=== PATIENT | female | born 1960 | race Caucasian/White ===

== ENCOUNTER 2020-10-21 07:54 | Day surgery (SDC) | payer OTHER ==
[~2020-10-21] VITALS: Ht 170.2 cm; Wt 164.7 kg
[~2020-10-21 07:54] MED LIST: ALAVERT10 M1 PO; ASPIR-LOW81 MG PO; ATENOLOL100 MG PO; BENTYL 20MG TAB20 MG PO; FLONASE SENSIM9.9 ML NS; FORTAMET500 MG PO; GLUCOPHAGE1000 MG PO; GLUCOSAMINE PO; HCTZ 25MG25 MG PO; LIPITOR40 MG PO; LISINOPRIL20 MG PO; LOVAZA1 GM PO; MICARDIS 40MG40 MG PO; ONE DAILY1 TA2 PO; PRILOSEC 20MG20 MG PO; SYNTHROID0.088 MG/T PO; TRICOR145 MG PO; VITAMIN E-400200 IU PO
[2020-10-21 08:53] LABS: HEMATOCRIT 48.8 % (37.0-47.0); HEMOGLOBIN 15.9 g/dl (12.5-16.0); MEAN CELL VOLUME 90 fl (80.0-100.0); MEAN CORPUSCULAR HEMOGLOBIN 29 pg (27.0-31.0); MEAN CORPUSCULAR HGB CONC 33 g/dl (33.0-37.0); MEAN PLATELET VOLUME 11.1 fl (7.4-10.4); PLATELET COUNT 251 K/mm3 (130-400); RED BLOOD COUNT 5.43 M/mm3 (4.10-5.30); REDCELL DISTRIBUTION WIDTH-CV 13.4 % (11.5-14.5)
[2020-10-21 09:03] VITALS: BP 164/111; PULSE 113; TEMP 98.9
[2020-10-21] MEDS ORDERED: NORVASC 5MG5 MG/TAB PO (09:06)
[2020-10-21] MEDS ORDERED: DIFLUCAN150 MG PO (09:07)
[2020-10-21] MEDS ORDERED: LIPITOR 40MG TA40 MG PO (09:08)
[2020-10-21] MEDS ORDERED: COREG 25MG25 MG/TAB PO (09:09)
[2020-10-21] MEDS ORDERED: CELEBREX 200MG200 MG PO (09:09)
[2020-10-21 09:10] LABS: CALCIUM 9.4 mg/dL (8.4-10.2); CREATININE, serum 0.65 (0.52-1.25); MAGNESIUM 1.6 mg/dL (1.6-2.3); POTASSIUM 3.9 mmol/L (3.4-5.0)
[2020-10-21] MEDS ORDERED: B-121000 MCG PO (09:10)
[2020-10-21] MEDS ORDERED: BENTYL 20MG20 MG/TAB PO (09:12)
[2020-10-21] MEDS ORDERED: ELIQUIS 5MG PO (09:13)
[2020-10-21] MEDS ORDERED: JARDIANCE10 PO (09:14)
[2020-10-21] MEDS ORDERED: TRICOR145 MG PO (09:15)
[2020-10-21] MEDS ORDERED: INVIGOFLEX D1500 MG PO (09:22)
[2020-10-21] MEDS ORDERED: OMEGA-3 FISH1000 MG PO (09:25)
[2020-10-21] MEDS ORDERED: HCTZ 25MG TAB25 MG PO (09:26)
[2020-10-21] MEDS ORDERED: PRINIVIL20 MG PO ×2 (09:29)
[2020-10-21] MEDS ORDERED: CENTRUM SILVER1 CTB PO (09:33)
[2020-10-21] MEDS ORDERED: DITROPAN XL15 MG PO (09:34)
[2020-10-21] MEDS ORDERED: VITAMIN D31000 I1 PO (09:34)
[2020-10-21] MEDS ORDERED: NATURAL E400 IU PO (09:35)
[2020-10-21 09:37] LABS: THYROID STIMULATING HORMONE 0.401 uIU/mL (0.350-4.940)
[2020-10-21 10:10] VITALS: BP 136/85; PULSE 77
[2020-10-21 10:15] VITALS: BP 130/93; PULSE 87
[2020-10-21] MEDS ORDERED: MULTAQ400 MG PO (10:21)
[2020-10-21 10:30] VITALS: BP 135/81; PULSE 76
[2020-10-21 10:45] VITALS: BP 133/80; PULSE 76
--- NOTE | 2020-10-21 11:35 | NUR ---
Discharge instructions given to pt.pt verbalizes understanding.INT removed,catheter tip intact.Pt escorted out via wheelchair by this nurse.
== END 2020-10-21 13:09 ==
LOC: COL.CAR 07:54
PROVIDERS: Internal Medicine Cardiovascular Disease
DX: I48.91 Unspecified atrial fibrillation (principal); I10 Essential (primary) hypertension; E78.2 Mixed hyperlipidemia; R06.02 Shortness of breath; G47.33 Obstructive sleep apnea (adult) (pediatric); K21.9 Gastro-esophageal reflux disease without esophagitis; F41.9 Anxiety disorder, unspecified; Z79.899 Other long term (current) drug therapy; Z79.84 Long term (current) use of oral hypoglycemic drugs; Z87.891 Personal history of nicotine dependence; Z79.890 Hormone replacement therapy; E78.5 Hyperlipidemia, unspecified; Z99.89 Dependence on other enabling machines and devices; M19.90 Unspecified osteoarthritis, unspecified site; K58.9 Irritable bowel syndrome, unspecified
CPT/HCPCS: J2704; J7030

== ENCOUNTER 2020-12-24 08:10 | Day surgery (SDC) | payer OTHER ==
[2020-12-24] VITALS (10 sets, daily range): BP systolic 101–144; BP diastolic 71–92; PULSE 107–124; TEMP 98.8
[~2020-12-24] VITALS: Ht 170.2 cm; Wt 162.8 kg
[~2020-12-24 08:10] MED LIST changes: +B-121000 MCG PO; +BENTYL 20MG20 MG/TAB PO; +CELEBREX 200MG200 MG PO; +CENTRUM SILVER1 CTB PO; +COREG 25MG25 MG/TAB PO; +DIFLUCAN150 MG PO; +DITROPAN XL15 MG PO; +ELIQUIS 5MG PO; +HCTZ 25MG TAB25 MG PO; +INVIGOFLEX D1500 MG PO; +JARDIANCE10 PO; +LIPITOR 40MG TA40 MG PO; +MULTAQ400 MG PO; +NATURAL E400 IU PO; +NORVASC 5MG5 MG/TAB PO; +OMEGA-3 FISH1000 MG PO; +PRINIVIL20 MG PO; +VITAMIN D31000 I1 PO
[2020-12-24 09:36] LABS: HEMATOCRIT 49.7 % (37.0-47.0); HEMOGLOBIN 16.1 g/dl (12.5-16.0); MEAN CELL VOLUME 91 fl (80.0-100.0); MEAN CORPUSCULAR HEMOGLOBIN 29 pg (27.0-31.0); MEAN CORPUSCULAR HGB CONC 32 g/dl (33.0-37.0); MEAN PLATELET VOLUME 10.9 fl (7.4-10.4); PLATELET COUNT 267 K/mm3 (130-400); RED BLOOD COUNT 5.48 M/mm3 (4.10-5.30); REDCELL DISTRIBUTION WIDTH-CV 13.2 % (11.5-14.5)
[2020-12-24 09:53] LABS: CALCIUM 9.8 mg/dL (8.4-10.2); CREATININE, serum 0.8 mg/dL (0.57-1.11)
[2020-12-24 10:00] LABS: INR 1.1 (0.8-3.0); PROTHROMBIN TIME 12.2 SECONDS (9.7-12.8)
[2020-12-24 10:03] LABS: PARTIAL THROMBOPLASTIN TIME 28.3 SECONDS (26.0-37.0)
--- NOTE | 2020-12-24 10:04 | NUR ---
SEE EMAR FOR MEDICATION ADMINISTRATION TIMES AND DOSAGES AND INTRA/POST SEDATION ASSESSMENT.
[2020-12-24] MEDS ORDERED: MULTAQ400 MG PO (10:51)
--- NOTE | 2020-12-24 11:17 | NUR ---
Pt is back to [facility] from woods laborer s/p negative heart cath. report received from Sandie ARMANDO. Pt is alert and oriented, pwd with reg and unlabored respirations. TR band to rt wrist, cms intact distal. at bs. call light in reach. lunch ordered. telemetry employed, afib on monitor.
[2020-12-24] MEDS ORDERED: CEPHALEXIN500 M1 PO (11:25)
--- NOTE | 2020-12-24 14:45 | NUR ---
Pt ready for discharge at this time. Pt did well during her recovery, she was able to eat lunch with no problem, she has been up and to bathroom with steady gait. TR band was deflated with no problem, and site dressed with bandaid, folded 2x2 and coban. CMS remains intact distal. Loop recorder site dressing remains clean dry and intact. IV dc'd with cath intact, dressing was applied. I reviewed dc/fu and rx instructions with pt and . They denied any questions at time of departure. Unfortunately I allowed pt to take her own Metformin 500 mg after she returned from cath laboratory technician. Pt is now aware that she should hold Metformin for [address] Velez was notified of this and he advised that pt push fluids over next few days to flush out kidneys. Pt was given this instruction. Pt is escorted to exit via wheelchair.
== END 2020-12-24 14:45 | disposition home or self-care (01) ==
LOC: COL.CAR 08:10
PROVIDERS: Internal Medicine Cardiovascular Disease
DX: I48.0 Paroxysmal atrial fibrillation (principal); R94.39 Abnormal result of other cardiovascular function study; E11.9 Type 2 diabetes mellitus without complications; I10 Essential (primary) hypertension; K58.9 Irritable bowel syndrome, unspecified; E66.9 Obesity, unspecified; E78.5 Hyperlipidemia, unspecified; G47.33 Obstructive sleep apnea (adult) (pediatric); Z99.89 Dependence on other enabling machines and devices
CPT/HCPCS: C1764; C1769; J1644; J2250; J3010

== ENCOUNTER 2021-01-12 08:31 | Inpatient (IN) | payer OTHER ==
[~2021-01-12 08:31] MED LIST changes: +CEPHALEXIN500 M1 PO
[2021-01-24 09:14] VITALS: BP 153/87; PULSE 96; TEMP 98.1
[2021-01-24] MEDS ORDERED: DIFLUCAN150 MG PO (10:01)
[2021-01-24] MEDS ORDERED: MOVE FREE JOIN1 EACH PO (10:06)
[2021-01-24] MEDS ORDERED: CLARITIN 1010 MG/TAB PO (10:06)
[2021-01-24] MEDS ORDERED: NATURAL E400 IU PO (10:07)
[2021-01-24 10:34] LABS: BASO # 0.1 K/mm3 (0.0-0.2); EOS # 0.2 K/mm3 (0.0-0.7); EOS % 2.5 % (0-4.0); GRAN # 4.4 K/mm3 (1.4-6.5); GRAN % 65.1 % (42.2-75.2); HEMATOCRIT 49.6 % (37.0-47.0); LYMPH # 1.4 K/mm3 (1.2-3.4); MEAN CELL VOLUME 90 fl (80.0-100.0); MEAN CORPUSCULAR HEMOGLOBIN 29 pg (27.0-31.0); MEAN CORPUSCULAR HGB CONC 32 g/dl (33.0-37.0); MEAN PLATELET VOLUME 10.9 fl (7.4-10.4); MONO # 0.7 K/mm3 (0.1-0.6); MONO % 9.8 % (1.7-9.3); PLATELET COUNT 265 K/mm3 (130-400); RED BLOOD COUNT 5.49 M/mm3 (4.10-5.30); REDCELL DISTRIBUTION WIDTH-CV 13.1 % (11.5-14.5)
[2021-01-24 10:41] LABS: INR 1.4 (0.8-3.0); PROTHROMBIN TIME 15.1 SECONDS (9.7-12.8)
[2021-01-24 12:23] VITALS: BP 141/96; PULSE 97; TEMP 98.3
[2021-01-24 13:34] VITALS: BP 147/94; PULSE 110; TEMP 97.6
[2021-01-24] MEDS ORDERED: PRINIVIL20 MG PO (13:51)
--- NOTE | 2021-01-24 14:25 | NUR ---
bottling room worker met with patient to discuss discharge plan. Patient states that she lives at home with her Darryl ([phone]) in [place]. Patient reports that she is fully independent with her activities of daily living and only uses a cane prn due to arthritis. Patient does not utilize oxygen but does use a CPAP machine at night which is managed through [facility]. PCP is Dr.John Dominguez at [facility] and she utilizes [facility] for her medications. Patient reports that she does not have a DP- established at this time and is not interested in creating one. Patient is with 4 adult children. Education provided to the patient that the decision making would fall to her . Patient reports that she is planning on returning home with her upon dc with no concerns. Discharge plan: Home
[2021-01-24 16:40] VITALS: BP 148/86; PULSE 91; TEMP 98
--- NOTE | 2021-01-24 18:00 | NUR ---
Patient admitted to room 352 from home for Sotalol initiation. Upon initial assessment, normal S1 and S2 sounds present, radial and pedal pulses +2 bilaterally, heart rate irregular. Patient verbalized a concern about tele stickers giving her skin irritation, skin prep used before stickers attached. Tele on. Scaling on feet noted. Bowel sounds present in all four quadrants. Lungs sounds clear. IV started in left foreram. Patient voiced concern about taking medication provided by hospital. Pharmacist talked with patient. Patient agreeable to medication after discussion with pharmacist. Patient denies any pain, discomfort, SOA, or further needs at this time. VSS. Patient A&O. Call light in reach.
[2021-01-24 18:19] VITALS: BP 140/81; PULSE 104; TEMP 98
[2021-01-24 20:03] VITALS: BP 137/88; PULSE 104; TEMP 98.2
[2021-01-25 00:02] VITALS: BP 133/81; PULSE 100; TEMP 97.8
[2021-01-25 04:35] VITALS: BP 126/82; PULSE 83; TEMP 98.3
--- NOTE | 2021-01-25 06:01 | NUR ---
Rested quietly throughout night club manager, patient upset with med substitutions per pharmacy, tolerating well, telemetry in use for sotalol initiation, VSs stable. Updated on plan of care.
[2021-01-25 07:09] LABS: BASO # 0.1 K/mm3 (0.0-0.2); BASO % 0.8 % (0.0-2.0); EOS # 0.2 K/mm3 (0.0-0.7); EOS % 2.9 % (0-4.0); GRAN # 3.9 K/mm3 (1.4-6.5); GRAN % 53.9 % (42.2-75.2); HEMATOCRIT 48.8 % (37.0-47.0); HEMOGLOBIN 15.9 g/dl (12.5-16.0); LYMPH # 2.2 K/mm3 (1.2-3.4); LYMPH % 30.3 % (20.0-51.0); MEAN CELL VOLUME 90 fl (80.0-100.0); MEAN CORPUSCULAR HEMOGLOBIN 29 pg (27.0-31.0); MEAN CORPUSCULAR HGB CONC 33 g/dl (33.0-37.0); MEAN PLATELET VOLUME 11.7 fl (7.4-10.4); MONO # 0.8 K/mm3 (0.1-0.6); MONO % 11.8 % (1.7-9.3); PLATELET COUNT 253 K/mm3 (130-400); RED BLOOD COUNT 5.42 M/mm3 (4.10-5.30); REDCELL DISTRIBUTION WIDTH-CV 13.2 % (11.5-14.5)
[2021-01-25 07:23] LABS: CREATININE, serum 0.82 mg/dL (0.57-1.11); MAGNESIUM 1.8 mg/dL (1.6-2.6); POTASSIUM 3.8 mmol/L (3.5-4.5)
[2021-01-25 07:32] LABS: INR 1.4 (0.8-3.0); PROTHROMBIN TIME 15.4 SECONDS (9.7-12.8)
--- NOTE | 2021-01-25 07:35 | NUR ---
PT AWAKE IN THE ROOM, NO C/O OF PAIN AT THIS TIME
[2021-01-25 07:40] VITALS: BP 143/88; PULSE 93; TEMP 97.5
--- NOTE | 2021-01-25 08:00 | NUR ---
PT AOX4, UPSET HER MEDS WEREN'T GIVEN AT 0600, PT UPSET SHE COULDN'T HAVE A COUPLE OF HER HOME MEDS, ADDRESSED WITH DR. GRIMES AND HE SAID "SHE CAN TAKE HER OWN". ASSESSMENT PERFORMED, PT ORDERED BREAKFAST WHILE IN THE ROOM. PT WANTING TO DISCHARGE TODAY, EDUCATED HER SHE HAS TO BE ON SOTALOL FOR A CERTAIN NUMBER OF DOSES, RELAYED CONCERN TO . FRESH ICE WATER BROUGHT IN, NO OTHER NEEDS
[2021-01-25 11:46] VITALS: BP 135/94; PULSE 92; TEMP 97.9
[2021-01-25 15:55] VITALS: BP 113/67; PULSE 107; TEMP 98.8
--- NOTE | 2021-01-25 17:28 | NUR ---
PT PLEASANT, AOX4, PT EAGER FOR DC, OK WITH [facility] TOMORROW, PARTICULAR ABOUT MEDS, UNEVENTFUL SHIFT, HR TO 140'S WITH AMBULATION
[2021-01-25 21:02] VITALS: BP 130/86; PULSE 93; TEMP 97.6
[2021-01-26] VITALS (7 sets, daily range): BP systolic 107–135; BP diastolic 45–98; PULSE 64–102; TEMP 97.5–97.8
--- NOTE | 2021-01-26 04:40 | NUR ---
Spoke with daughter - contact info for LP orders is [phone], orders were sent from to radiology with verified arrival, urinating w/o difficulty, ambulating with walker to bathroom, generalized edema noted, neuro check wnl, pain well managed with prn pain medication as ordered, will continue to monitor.
--- NOTE | 2021-01-26 04:44 | NUR ---
Resting quietly, telemetry in use, Afib continues at this time, updated on cardioversion today- verbalized understanding.
[2021-01-26 06:56] LABS: BASO # 0.1 K/mm3 (0.0-0.2); BASO % 0.7 % (0.0-2.0); EOS # 0.2 K/mm3 (0.0-0.7); EOS % 2.6 % (0-4.0); GRAN # 4.1 K/mm3 (1.4-6.5); GRAN % 55.8 % (42.2-75.2); HEMATOCRIT 50.7 % (37.0-47.0); HEMOGLOBIN 16.7 g/dl (12.5-16.0); LYMPH # 2.1 K/mm3 (1.2-3.4); LYMPH % 28.5 % (20.0-51.0); MEAN CELL VOLUME 92 fl (80.0-100.0); MEAN CORPUSCULAR HEMOGLOBIN 30 pg (27.0-31.0); MEAN CORPUSCULAR HGB CONC 33 g/dl (33.0-37.0); MEAN PLATELET VOLUME 11.7 fl (7.4-10.4); MONO # 0.9 K/mm3 (0.1-0.6); MONO % 12.1 % (1.7-9.3); PLATELET COUNT 273 K/mm3 (130-400); RED BLOOD COUNT 5.53 M/mm3 (4.10-5.30); REDCELL DISTRIBUTION WIDTH-CV 12.9 % (11.5-14.5)
[2021-01-26 07:01] LABS: INR 1.3 (0.8-3.0)
[2021-01-26 07:22] LABS: CALCIUM 10.1 mg/dL (8.4-10.2); CREATININE, serum 0.79 mg/dL (0.57-1.11); MAGNESIUM 1.9 mg/dL (1.6-2.6)
--- NOTE | 2021-01-26 07:30 | NUR ---
PT AOX4, DENIES PAIN IN R KNEE AT THIS TIME, PT TEARFUL ON ENTRY OF ROOM REPORTING POOR SLEEP AND FREQUENT INTERUPTIONS, PT STATES "I JUST WANT TO GET THIS OVER WITH AND GO HOME". CONSENT OBTAINED FOR [facility], SOME MEDS GIVEN PER PT REQUEST, ASSESSMENT PERFORMED, CALL LIGHT WITHIN REACH, NO OTHER NEEDS
[2021-01-26] MEDS ORDERED: BETAPACE 120MG120 MG PO (09:20)
--- NOTE | 2021-01-26 09:25 | NUR ---
PT ARRIVED FROM [facility], PT AOX4, ATTACHED TO POST OP VITALS, GAVE PT HER HOME MEDS, GAVE PT HER MEDICATIONS THAT WERE DUE FOR THE AM, POST EKG PERFORMED, STARTING DISCHARGE PAPERWORK
--- NOTE | 2021-01-26 10:30 | NUR ---
pt wheeled out with pt belongings and pt personal medication. no other needs
== END 2021-01-26 10:30 | disposition home or self-care (01) | DRG 310 ==
LOC: MEDICAL 01-24 07:01
PROVIDERS: ADMIT Internal Medicine Cardiovascular Disease
PROC: 5A2204Z Restoration of Cardiac Rhythm, Single (ICD-10-PCS; principal; 2021-01-26)
DX: I48.0 Paroxysmal atrial fibrillation (principal)
CPT/HCPCS: J2704

== ENCOUNTER → 2023-08-08 | Outpatient (CLI) | payer OTHER ==
[~2023-08-08] MED LIST changes: +BETAPACE 120MG120 MG PO; +CLARITIN 1010 MG/TAB PO; +CORDARONE200 MG/TAB PO; +MOVE FREE JOIN1 EACH PO; +NORVASC 10MG10 MG PO; +PACERONE200 MG PO; +RYBELSUS3 MG PO; +TOPROL XL 50MG50 MG PO; +VOLTAREN GEL 1%1 TU TP
== END ==
LOC: COL.CAR 09:00
DX: I48.91 Unspecified atrial fibrillation (principal)
CPT/HCPCS: J2704

== ENCOUNTER 2023-12-21 06:53 | Day surgery (SDC) | payer OTHER ==
[~2023-12-21] VITALS: Ht 170.3 cm; Wt 155.6 kg
[~2023-12-21 06:53] MED LIST changes: +LR 1,000 ML IV SCH; +SYNTHROID0.075 MG/T PO; -SYNTHROID0.088 MG/T PO
[2023-12-21] MEDS ORDERED: NS Flush 10 ML SYRINGE PRN ICA (07:45)
[2023-12-21 08:10] LABS: HEMATOCRIT 45.7 % (37.0-47.0); HEMOGLOBIN 15.4 g/dl (12.5-16.0); MEAN CELL VOLUME 91 fl (80.0-100.0); MEAN CORPUSCULAR HEMOGLOBIN 31 pg (27-31); MEAN CORPUSCULAR HGB CONC 34 g/dl (33.0-37.0); MEAN PLATELET VOLUME 11.1 fl (7.4-10.4); PLATELET COUNT 263 K/mm3 (130-400); RED BLOOD COUNT 5.02 M/mm3 (4.10-5.30)
[2023-12-21 08:15] LABS: INR 1.5 (0.8-3.0); PROTHROMBIN TIME 15.9 SECONDS (9.7-12.8)
[2023-12-21 08:18] LABS: PARTIAL THROMBOPLASTIN TIME 36.4 SECONDS (26.0-37.0)
[2023-12-21 08:24] LABS: CALCIUM 9.7 mg/dL (8.4-10.2); CREATININE, serum 0.83 mg/dL (0.57-1.11); POTASSIUM 3.5 mEq/L (3.5-4.5)
[2023-12-21] MEDS ORDERED: TOPROL XL 50MG50 MG PO (08:25)
[2023-12-21] MEDS ORDERED: TOPROL XL 25MG25 MG PO (08:26)
[2023-12-21 08:34] LABS: MAGNESIUM 1.6 mg/dL (1.6-2.6)
[2023-12-21 08:45] LABS: THYROID STIMULATING HORMONE 0.492 uIU/mL (0.350-4.940)
[2023-12-21 08:50] VITALS: BP 153/96; PULSE 112; TEMP 98.2
[2023-12-21] MEDS ORDERED: NS Flush 10 ML SYRINGE BID ICA SCH (09:00)
--- NOTE | 2023-12-21 09:14 | NUR ---
Radha is awake and conversant after cardioversion with Dr. Velez. She is in sinus rhythm rate 62 on monitor. RT has been called for repeat EKG. Plan for hydrocortisone ointment to chest and back where pads were as Radha's skin is a little sore. Please see moderate sedation and anesthesia flowsheets for record of procedure. BS report and handoff of care to Kimberly ARMANDO
[2023-12-21] MEDS ORDERED: Hydrocortisone 1% Cream 30 GM TUBE TP PRN (09:15)
--- NOTE | 2023-12-21 09:26 | NUR ---
Report received from Nathaniel Fernandez.Patient awake,alert and sipping on water.
[2023-12-21 09:30] VITALS: BP 125/71; PULSE 62
[2023-12-21 09:45] VITALS: BP 131/72; PULSE 62
[2023-12-21 10:00] VITALS: BP 129/75; PULSE 62
[2023-12-21 10:15] VITALS: BP 125/73; PULSE 62
--- NOTE | 2023-12-21 10:31 | NUR ---
Discharge instructions given to patient.Patient verbalizes understanding.
--- NOTE | 2023-12-21 10:49 | NUR ---
Pt escortedo ut via wheelchair by this nurse.
== END 2023-12-21 11:38 ==
LOC: COL.CAR 06:53
PROVIDERS: Internal Medicine Cardiovascular Disease
DX: I48.0 Paroxysmal atrial fibrillation (principal); G47.33 Obstructive sleep apnea (adult) (pediatric); Z99.89 Dependence on other enabling machines and devices; Z98.890 Other specified postprocedural states; Z79.01 Long term (current) use of anticoagulants
CPT/HCPCS: J2704; J7120